=== PATIENT | female | born 1980 | race Two or more races ===

== ENCOUNTER 2017-07-20 19:55 | Emergency (ER) | payer SELFPAY ==
[~2017-07-20] VITALS: Ht 157.5 cm; Wt 59.0 kg
[2017-07-20 20:14] VITALS: BP 120/80
[2017-07-20] MEDS ORDERED: Norco 5mg/325mg tab ORAL ONE (20:15)
[2017-07-20] MEDS ORDERED: Cephalexin 500mg cap ORAL ONE (20:15)
[2017-07-20] MEDS ORDERED: Bactrim DS (160mg/800mg) tab ORAL ONE (20:15)
[2017-07-20] MEDS ORDERED: BACTRIM DS TAB1 EAC1 ORAL (20:33)
[2017-07-20] MEDS ORDERED: IBUPROFEN600 MG ORAL (20:33)
[2017-07-20] MEDS ORDERED: KEFLEX500 MG ORAL (20:33)
[2017-07-20] MEDS ORDERED: NORCO 5-325 TA1 EACH ORAL (20:33)
[2017-07-20 20:37] VITALS: BP 120/80
--- NOTE | 2017-07-22 08:01 | Emergency Room Report ---
History of Present Illness General Chief Complaint: Skin Rash/Abscess Source: Patient Present Illness HPI 36-year-old female presents ED for evaluation. States she has a "spider bite" on her lower abdomen. Happened 3 days ago and has been getting worse. Pain is a 9/10, throbbing, nonradiating. Patient states that there was some discharge from the site. No fevers or chills. No nausea or vomiting. No other aggravating relieving factors. Denies any other associated symptoms Allergies: Coded Allergies: No Known Allergies (Unverified , 07/20/17) Patient History Past Medical History: none Past Surgical History: none Pertinent Family History: none Social History: Denies: smoking, alcohol use, drug use Now: No Immunizations: UTD Reviewed Nursing Documentation: PMH: Agreed, PSxH: Agreed Nursing Documentation-PMH Past Medical History: No Stated History Review of Systems All Other Systems: negative except mentioned in HPI Physical Exam Vital Signs Date Time Temp Pulse Resp B/P (MAP) Pulse Ox O2 Delivery O2 Flow Rate FiO2 07/20/17 20:04 98.6 82 16 120/80 98 Room Air Sp02 EP Interpretation: reviewed, normal General Appearance: no apparent distress, alert, GCS 15, non-toxic Head: normocephalic Eyes: bilateral eye normal inspection, bilateral eye PERRL ENT: normal ENT inspection Neck: normal inspection Respiratory: normal inspection Cardiovascular #1: normal inspection Gastrointestinal: normal inspection Rectal: deferred Genitourinary: no CVA tenderness Musculoskeletal: normal inspection Neurologic: alert, oriented x3, responsive, motor strength/tone normal, sensory intact, speech normal Psychiatric: normal inspection Skin: other - large area of erythema/induration to lower abdomen. no fluctuance. no discharge Lymphatic: normal inspection Medical Decision Making Diagnostic Impression: Primary Impression: Cellulitis of abdominal wall ER Course Hospital Course 36-year-old female presents to ED with redness, swelling to lower abdomen Differential diagnoses include: Cellulitis, dermatitis, insect bite, abscess Clinical course Patient placed on stretcher. After initial history, physical exam reveals a young female in no acute distress. On exam there is a site for erythema and induration to the lower abdomen. There is no fluctuance. There is tenderness. We will treat with antibiotics. Recommended warm compresses. Given antibiotics and pain medication here in ED Diagnosis - cellulitis of abdominal wall stable and discharged to home with prescription for bactrim, Keflex, motrin, [place]. Warm compresses. Instructed to followup with PMD. Instructed return to ED if symptoms recur or worsen Last Vital Signs Date Time Temp Pulse Resp B/P (MAP) Pulse Ox O2 Delivery O2 Flow Rate FiO2 07/20/17 20:37 98.6 82 16 120/80 98 Room Air Status: improved Disposition: HOME, SELF-CARE Condition: Stable Scripts Hydrocodone Bit/Acetaminophen 5-325* (NORCO 5-325*) 1 Each Tablet 1 TAB ORAL Q6H Y for For Pain, #10 TAB 0 Refills Prov: WARNER BARR M.D. 07/20/17 Ibuprofen* (MOTRIN*) 600 Mg Tablet 600 MG ORAL Q8H Y for For Pain, #30 TAB 0 Refills Prov: WARNER BARR M.D. 07/20/17 Trimethoprim/Sulfamethoxazole 160/800* (BACTRIM DS TABLET*) 1 Each Tablet 1 TAB ORAL Q12H, #14 TAB 0 Refills Prov: WARNER BARR M.D. 07/20/17 Cephalexin* (KEFLEX*) 500 Mg Capsule 500 MG ORAL Q6H, #28 CAP 0 Refills Prov: WARNER BARR M.D. 07/20/17 Referrals: NOT CHOSEN FISH/,REFERRING (PCP) Patient Instructions: Cellulitis, [id number] WARNER BARR M.D. Jul 22, 2017 08:01
== END 2017-07-20 20:37 | disposition home or self-care (01) ==
LOC: EMR 20:10
DX: L03.311 Cellulitis of abdominal wall (principal)
CPT/HCPCS: 99282